=== PATIENT | female | born 1985 | race Caucasian/White ===

== ENCOUNTER 2016-05-16 05:30 | Day surgery (SDC) | payer BC ==
[~2016-05-16] VITALS: Ht 160 cm; Wt 72.6 kg
[~2016-05-16 05:30] MED LIST: FLINTSTONES CO1 EAC1 PO; HYDROCODON-ACE1 EAC7 PO; IBUPROFEN800 MG PO; TRI-SPRINTEC1 EACH PO; TUMS500 MG PO
[2016-05-16 06:25] LABS: EOSINOPHIL (%) 1.2 % (0-5); EOSINOPHIL COUNT 0.1 K/uL (0-0.3); HEMATOCRIT 37.1 % (36.0-46.0); IMMATURE GRANULOCYTE (%) 0.4 % (0.0-0.7); IMMATURE GRANULOCYTE COUNT 0.4 K/uL; LYMPHOCYTE COUNT 2.5 K/uL (1.0-2.8); MCHC 35.8 G/DL (30.0-36.0); MONOCYTE (%) 8.1 % (3-12); MONOCYTE COUNT 0.8 K/uL (0-0.8); NEUTROPHIL (%) 63.5 % (45-76); NEUTROPHIL COUNT 5.9 K/uL (1.8-6.4); PLATELET COUNT 186 K/uL (156-360); RBC DIS.WIDTH-CV 13.4 % (11.8-14.6); RBC DIS.WIDTH-SD 38.1 % (39-53); RED BLOOD COUNT 4.58 M/uL (3.80-5.20); WHITE BLOOD COUNT 9.3 K/uL (4.1-10.2)
[2016-05-16 06:41] VITALS: BP 116/64
[2016-05-16] MEDS ORDERED: PERCOCET 5/31 TABLET PO (08:03)
[2016-05-16 09:01] VITALS: BP 95/52
[2016-05-16 10:00] VITALS: BP 113/66
== END 2016-05-16 10:28 | disposition home or self-care (01) ==
LOC: SDC 05:30
PROVIDERS: Obstetrics & Gynecology
PROC: 10D17ZZ Extraction of Products of Conception, Retained, Via Natural or Artificial Opening (ICD-10-PCS; principal; 2016-05-16)
DX: O03.4 Incomplete spontaneous abortion without complication (principal); K21.9 Gastro-esophageal reflux disease without esophagitis; Z87.891 Personal history of nicotine dependence
CPT/HCPCS: 85025; 86850; 86900; 86901; 88305; J0131; J1100; J1885; J2250; J2405; J2765; J3010

== ENCOUNTER 2017-10-21 12:00 | Outpatient (CLI) | payer BC, OTHER ==
[2017-10-21] VITALS (8 sets, daily range): BP systolic 120–134; BP diastolic 59–82
[~2017-10-21 12:00] MED LIST changes: +PERCOCET 5/31 TABLET PO
[2017-10-21 13:15] LABS: APPEARANCE CLOUDY ((CLEAR)); BILIRUBIN NEGATIVE; BLOOD MODERATE; COLOR YELLOW ((YELLOW)); GLUCOSE (STRIP) NEGATIVE; KETONES 20; LEUKOCYTES SMALL; NITRITE NEGATIVE; PROTEIN (STRIP) NEGATIVE; UROBILINOGEN 0.2 MG/DL (0.2-1.0)
[2017-10-21 13:35] LABS: BASOPHIL (%) 0.2 % (0-1); EOSINOPHIL (%) 0.3 % (0-5); HEMATOCRIT 34.2 % (36.0-46.0); HEMOGLOBIN 11.7 G/DL (11.9-15.5); IMMATURE GRANULOCYTE (%) 0.9 % (0.0-0.7); LYMPHOCYTE (%) 13.2 % (15-42); LYMPHOCYTE COUNT 1.6 K/uL (1.0-2.8); MCH 28.2 PG (29.0-34.0); MCHC 34.2 G/DL (30.0-36.0); MCV 82.4 FL (83-99); MONOCYTE (%) 6.2 % (3-12); MONOCYTE COUNT 0.8 K/uL (0-0.8); NEUTROPHIL (%) 79.2 % (45-76); NEUTROPHIL COUNT 9.6 K/uL (1.8-6.4); PLATELET COUNT 157 K/uL (156-360); RBC DIS.WIDTH-CV 14.3 % (11.8-14.6); RBC DIS.WIDTH-SD 42.2 % (39-53); RED BLOOD COUNT 4.15 M/uL (3.80-5.20); WHITE BLOOD COUNT 12.1 K/uL (4.1-10.2)
[2017-10-21 13:39] LABS: UR CREATININE CONCENTRATION 89.8 MG/DL
[2017-10-21 14:02] LABS: ALBUMIN 3.3 G/DL (3.2-4.8); ALKALINE PHOSPHATASE 128 IU/L (3-129); ALT (GPT) 16 IU/L (3-49); AST (GOT) 18 IU/L (2-34); CHLORIDE 107 MEQ/L (99-109); CREATININE 0.6 MG/DL (0.6-1.3); GFR ESTIMATE (CALCULATED) > 59 mL/min/; GLUCOSE 97 mg/dL (70-99); POTASSIUM 3.3 MEQ/L (3.7-5.4); SODIUM 140 MEQ/L (136-147); TOTAL BILIRUBIN 0.5 MG/DL (0.0-1.0); TOTAL PROTEIN 5.4 G/DL (6.4-8.3); UREA NITROGEN (BUN) 4 mg/dL (9-23)
[2017-10-21 14:13] LABS: RED BLOOD CELLS 15-20 /HPF (0-5)
[2017-10-21 14:15] LABS: BACTERIA 1+ /HPF; EPITHELIAL CELLS 1+ /HPF; MUCUS NONE SEEN /LPF; UCUL ADDED? NO; WHITE BLOOD CELLS 0-5 /HPF (0-5)
[2017-10-21 14:16] LABS: CALCIUM OXALATE CRYSTALS FEW /HPF
== END 2017-10-21 15:00 | disposition home or self-care (01) ==
LOC: LDRP-OP → 2WEST 12:01
PROVIDERS: Advanced Practice Midwife
DX: O16.3 Unspecified maternal hypertension, third trimester (principal); Z3A.36 36 weeks gestation of pregnancy
CPT/HCPCS: 59025; 80053; 81003; 82570; 84156; 84550; 85025; G0378

== ENCOUNTER 2017-10-31 14:42 | Outpatient (CLI) | payer BC, OTHER ==
[~2017-10-31] VITALS: Ht 160 cm; Wt 98.6 kg
[2017-10-31] VITALS (7 sets, daily range): BP systolic 127–140; BP diastolic 69–94
[2017-10-31] MEDS ORDERED: ASPIRIN81 M2 PO (15:37)
[2017-10-31 15:46] LABS: BASOPHIL (%) 0.3 % (0-1); EOSINOPHIL (%) 0.8 % (0-5); EOSINOPHIL COUNT 0.1 K/uL (0-0.3); HEMATOCRIT 36.1 % (36.0-46.0); HEMOGLOBIN 12.5 G/DL (11.9-15.5); IMMATURE GRANULOCYTE (%) 1.1 % (0.0-0.7); LYMPHOCYTE (%) 12.7 % (15-42); LYMPHOCYTE COUNT 1.5 K/uL (1.0-2.8); MCH 28.1 PG (29.0-34.0); MCHC 34.6 G/DL (30.0-36.0); MCV 81.1 FL (83-99); NEUTROPHIL (%) 77.1 % (45-76); NEUTROPHIL COUNT 9.2 K/uL (1.8-6.4); PLATELET COUNT 155 K/uL (156-360); RBC DIS.WIDTH-CV 14.7 % (11.8-14.6); RBC DIS.WIDTH-SD 42.5 % (39-53); RED BLOOD COUNT 4.45 M/uL (3.80-5.20); WHITE BLOOD COUNT 11.9 K/uL (4.1-10.2)
[2017-10-31 16:08] LABS: APPEARANCE SL.HAZY ((CLEAR)); BILIRUBIN NEGATIVE; BLOOD MODERATE; COLOR YELLOW ((YELLOW)); GLUCOSE (STRIP) NEGATIVE; KETONES NEGATIVE; LEUKOCYTES NEGATIVE; NITRITE NEGATIVE; PROTEIN (STRIP) NEGATIVE; UROBILINOGEN 0.2 MG/DL (0.2-1.0)
[2017-10-31 16:08] LABS: ALBUMIN 3.3 G/DL (3.2-4.8); CHLORIDE 107 MEQ/L (99-109); POTASSIUM 3.4 MEQ/L (3.7-5.4); SODIUM 140 MEQ/L (136-147); TOTAL BILIRUBIN 0.5 MG/DL (0.0-1.0)
[2017-10-31 16:14] LABS: ALKALINE PHOSPHATASE 155 IU/L (3-129); ALT (GPT) 25 IU/L (3-49); AST (GOT) 22 IU/L (2-34); CREATININE 0.6 MG/DL (0.6-1.3); GFR ESTIMATE (CALCULATED) > 59 mL/min/; GLUCOSE 75 mg/dL (70-99); TOTAL PROTEIN 5.7 G/DL (6.4-8.3); UREA NITROGEN (BUN) 4 mg/dL (9-23); URIC ACID 5.6 mg/dL (3.1-9.2)
[2017-10-31 16:21] LABS: BACTERIA RARE /HPF; CALCIUM OXALATE CRYSTALS 4+ /HPF; EPITHELIAL CELLS 2+ /HPF; MUCUS TRACE /LPF; RED BLOOD CELLS TNTC /HPF (0-5); UCUL ADDED? YES
== END 2017-10-31 18:00 | disposition home or self-care (01) ==
LOC: LDRP-OP 14:42 → 2WEST 14:44 → LDRP-OP 12-17 15:28
PROVIDERS: Advanced Practice Midwife
DX: O16.3 Unspecified maternal hypertension, third trimester (principal); Z3A.37 37 weeks gestation of pregnancy
CPT/HCPCS: 59025; 80053; 81003; 82570; 84156; 84550; 85025; 87077; 87086; 87186; G0378

== ENCOUNTER 2017-11-11 08:01 | Inpatient (IN) | payer BC, OTHER ==
[~2017-11-11] VITALS: Ht 160 cm; Wt 99.5 kg
[2017-11-11] VITALS (26 sets, daily range): BP systolic 128–166; BP diastolic 78–106
[~2017-11-11 08:01] MED LIST changes: +ASPIRIN81 M2 PO
[2017-11-11 09:08] LABS: BASOPHIL (%) 0.6 % (0-1); BASOPHIL COUNT 0.1 K/uL (0-0.1); EOSINOPHIL (%) 1.2 % (0-5); EOSINOPHIL COUNT 0.2 K/uL (0-0.3); HEMATOCRIT 37.4 % (36.0-46.0); HEMOGLOBIN 12.7 G/DL (11.9-15.5); IMMATURE GRANULOCYTE (%) 0.7 % (0.0-0.7); LYMPHOCYTE (%) 18.5 % (15-42); LYMPHOCYTE COUNT 2.3 K/uL (1.0-2.8); MCH 27.6 PG (29.0-34.0); MCV 81.3 FL (83-99); MONOCYTE (%) 7.3 % (3-12); MONOCYTE COUNT 0.9 K/uL (0-0.8); NEUTROPHIL (%) 71.7 % (45-76); NEUTROPHIL COUNT 8.8 K/uL (1.8-6.4); PLATELET COUNT 153 K/uL (156-360); RBC DIS.WIDTH-CV 14.6 % (11.8-14.6); RBC DIS.WIDTH-SD 42.5 % (39-53); WHITE BLOOD COUNT 12.3 K/uL (4.1-10.2)
[2017-11-11 09:38] LABS: ALBUMIN 3.1 G/DL (3.2-4.8); ALKALINE PHOSPHATASE 154 IU/L (3-129); ALT (GPT) 25 IU/L (3-49); AST (GOT) 26 IU/L (2-34); CHLORIDE 107 MEQ/L (99-109); CREATININE 0.7 MG/DL (0.6-1.3); GFR ESTIMATE (CALCULATED) > 59 mL/min/; GLUCOSE 99 mg/dL (70-99); POTASSIUM 3.5 MEQ/L (3.7-5.4); SODIUM 140 MEQ/L (136-147); TOTAL BILIRUBIN 0.5 MG/DL (0.0-1.0); TOTAL PROTEIN 5.2 G/DL (6.4-8.3); UREA NITROGEN (BUN) 4 mg/dL (9-23)
[2017-11-11 09:40] LABS: AMPHETAMINE NEGATIVE (500 ng/mL); BARBITURATES NEGATIVE (200 ng/mL); BENZODIAZEPINES NEGATIVE (150 ng/mL); BUPRENORPHINE NEGATIVE (10 ng/mL); COCAINE NEGATIVE (150 ng/mL); METHADONE NEGATIVE (200 ng/mL); METHAMPHETAMINE NEGATIVE (500 ng/mL); OPIATES (MORPHINE) NEGATIVE (100 ng/mL); OXYCODONE NEGATIVE (100 ng/mL); PHENCYCLIDINE NEGATIVE (25 ng/mL); PROPOXYPHENE NEGATIVE (300 ng/mL); THC CANNABINOIDS NEGATIVE (50 ng/mL); TRICYCLIC ANTIDEPRESSANTS NEGATIVE (300 ng/mL)
[2017-11-11 10:52] LABS: LACTATE DEHYDROGENASE 165 IU/L (20-246)
[2017-11-12] VITALS (41 sets, daily range): BP systolic 120–170; BP diastolic 61–94
[2017-11-12 18:28] LABS: PCO2 81 mm Hg (35-45); PO2 > 30 mm Hg (80-100); pH 7.97 (7.35-7.45)
[2017-11-12 18:29] LABS: BASE EXCESS -15.4 mEq/L (-3 to +3); BICARBONATE 18.6 mEq/L (22-26); SITE CORD ARTERILA
[2017-11-12 18:30] LABS: COMMENTS - BLOOD GASES C+
[2017-11-12 18:31] LABS: BICARBONATE 17.1 mEq/L (22-26); CARBOXY HGB 2.3 % (0-5); COMMENTS - BLOOD GASES C+; METHEMOGLOBIN 1.3 % (0-1.5); PCO2 34 mm Hg (35-45); PO2 45 mm Hg (80-100); SITE CORD; pH 7.31 (7.35-7.45)
[2017-11-13 02:31] VITALS: BP 146/73
[2017-11-13 06:08] LABS: BASOPHIL (%) 0.3 % (0-1); BASOPHIL COUNT 0.1 K/uL (0-0.1); EOSINOPHIL (%) 0.9 % (0-5); EOSINOPHIL COUNT 0.1 K/uL (0-0.3); HEMOGLOBIN 11.5 G/DL (11.9-15.5); IMMATURE GRANULOCYTE (%) 0.8 % (0.0-0.7); LYMPHOCYTE (%) 17.1 % (15-42); LYMPHOCYTE COUNT 2.7 K/uL (1.0-2.8); MCH 28.2 PG (29.0-34.0); MCHC 33.8 G/DL (30.0-36.0); MCV 83.3 FL (83-99); MONOCYTE (%) 9.6 % (3-12); MONOCYTE COUNT 1.5 K/uL (0-0.8); NEUTROPHIL (%) 71.3 % (45-76); NEUTROPHIL COUNT 11.2 K/uL (1.8-6.4); PLATELET COUNT 142 K/uL (156-360); RBC DIS.WIDTH-CV 14.8 % (11.8-14.6); RBC DIS.WIDTH-SD 44.5 % (39-53); RED BLOOD COUNT 4.08 M/uL (3.80-5.20); WHITE BLOOD COUNT 15.8 K/uL (4.1-10.2)
[2017-11-13 09:18] VITALS: BP 153/81
[2017-11-13] MEDS ORDERED: DOCUSATE SODIU100 MG PO (09:35)
[2017-11-13] MEDS ORDERED: IBUPROFEN800 MG PO (09:35)
[2017-11-13] MEDS ORDERED: ORTHO TRI-CY1 TABLE1 PO (09:36)
[2017-11-13 11:10] VITALS: BP 148/78
[2017-11-13 14:26] VITALS: BP 146/80
[2017-11-13 19:07] VITALS: BP 146/84
[2017-11-13 23:04] VITALS: BP 143/82
[2017-11-14 03:00] VITALS: BP 124/75
[2017-11-14] MEDS ORDERED: AFEDITAB CR30 MG PO (10:10)
== END 2017-11-14 12:24 | disposition home or self-care (01) | DRG 775 ==
LOC: LDRP-OP 08:01 → 2WEST 08:02 → LDRP-OP 12:20 → 2WEST 11-12 18:11 → LDRP-OP 12-17 18:52
PROVIDERS: Advanced Practice Midwife; Obstetrics & Gynecology
DX: O13.4 Gestational [pregnancy-induced] hypertension without significant proteinuria, complicating childbirth (principal); Z3A.39 39 weeks gestation of pregnancy; Z37.0 Single live birth; O99.214 Obesity complicating childbirth; E66.9 Obesity, unspecified; Z68.30 Body mass index [BMI] 30.0-30.9, adult; O99.344 Other mental disorders complicating childbirth; F41.9 Anxiety disorder, unspecified; O99.824 Streptococcus B carrier state complicating childbirth; O69.1XX0 Labor and delivery complicated by cord around neck, with compression, not applicable or unspecified
CPT/HCPCS: 36600; 80053; 82570; 83615; 84156; 85025; C1755; G0378; J0595; J2405; J2540; J3010; J7120